=== PATIENT | female | born 1990 | race Caucasian/White ===

== ENCOUNTER 2020-06-02 08:20 | Outpatient (CLI) | payer OTHER | END 2020-06-02 08:21 | disposition home or self-care (01) | LOC: COV 08:20 | PROVIDERS: ATTEND Family Medicine | DX: R05 Cough (principal); R53.83 Other fatigue; R07.0 Pain in throat; R19.7 Diarrhea, unspecified; R09.81 Nasal congestion; J34.89 Other specified disorders of nose and nasal sinuses; R11.2 Nausea with vomiting, unspecified; Z20.828 Contact with and (suspected) exposure to other viral communicable diseases ==

== ENCOUNTER 2021-02-16 16:59 | Emergency (ER) | payer OTHER ==
[2021-02-16 17:10] VITALS: BP 159/93
[2021-02-16] MEDS ORDERED: AMOX/CLAV 875 MG/125 MG TABLET PO STA (17:17)
[2021-02-16] MEDS ORDERED: TETANUS/DIPHTHERIA/PERTUSSIS 0.5 ML SYRINGE IM ONE (17:18)
--- NOTE | 2021-02-16 17:32 | ED Physician Documentation ---
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 No bleeding. Unknown last tetanus. Nothing makes it better or worse. Review of Systems Constitutional: denies: Fever, Chills GI: denies: Vomiting, Diarrhea : denies: Now EGA Skin: denies: Rash PD PAST MEDICAL HISTORY - Past Medical History Past Medical History: No - Past Surgical History Past Surgical History: No - Present Medications Home Medications: Ambulatory Orders Medication Instructions Recorded Confirmed Amox/Clav 875/125 [Augmentin] 1 tab PO Q12H #14 tablet 02/16/21 - Allergies Allergies/Adverse Reactions: Allergies Allergy/AdvReac Type Severity Reaction Status Date / Time Sulfa (Sulfonamide Allergy Rash Verified 02/16/21 17:10 Antibiotics) - Living Situation Living Situation: reports: With family Living Arrangement: reports: At home PD ED PE NORMAL - Vitals Vital signs reviewed: Yes - General General: Alert and oriented X 3, No acute distress - HEENT HEENT: Moist mucous membranes - Neck Neck: Supple, no meningeal sign - Derm Derm: Warm and dry - Extremities Extremities: Other (small puncture to the L thumb. no bleeding. NVI.) - Neuro Neuro: Alert and oriented X 3 - Psych Psych: Normal mood, Normal affect Results - Vitals Vitals: Vital Signs - 24 hr 02/16/21 17:06 Temperature 36.3 C L Heart Rate 114 H Respiratory 18 Rate Blood Pressure 159/93 H O2 Saturation 97 Oxygen O2 Source Room air PD MEDICAL DECISION MAKING - ED course Complexity details: considered differential, d/w patient ED course: 30-year-old female with a cat bite to the left thumb. Will place on Augmentin. Wounds were cleansed. No active bleeding. No lacerations to repair. Tdap given. L&I paperwork filled out. Warnings of infection and instructions on wound care given at bedside. Patient counseled regarding signs and symptoms for which I believe and urgent re-evaluation would be necessary. Patient with good understanding of and agreement to plan and is comfortable going home at this time This document was made in part using voice recognition software. While efforts are made to proofread this document, sound alike and grammatical errors may occur. Departure - Departure Disposition: 01 Home, Self Care Clinical Impression: Cat bite Qualifiers: Encounter type: initial encounter Qualified Code(s): W55.01XA - Bitten by cat, initial encounter Condition: Good Instructions: ED Bite Animal General Follow-Up: your,doctor in 1 week if needed [Other] Prescriptions: Amox/Clav 875/125 [Augmentin] 1 tab PO Q12H #14 tablet Comments: Your prescription was sent to [facility] in [place]. Follow-up with your doctor as needed for further care. Return if you notice redness, swelling or drainage from the wound. You were given a tetanus shot today as well. Discharge Date/Time: 02/16/21 17:50
== END 2021-02-16 17:50 | disposition home or self-care (01) ==
LOC: ED 16:59
DX: S61.052A Open bite of left thumb without damage to nail, initial encounter (principal); W55.01XA Bitten by cat, initial encounter; Y93.K9 Activity, other involving animal care; Y92.531 Health care provider office as the place of occurrence of the external cause; Y99.0 Civilian activity done for income or pay; Z23 Encounter for immunization
CPT/HCPCS: 1040M; 90471; 90715; 99283; 99284; A9270